=== PATIENT | male | born 1960 | race Caucasian/White ===

== ENCOUNTER 2022-01-13 09:15 | Inpatient (IN) | payer OTHER ==
[~2022-01-13] VITALS: Ht 193 cm; Wt 72.6 kg
[2022-01-13 09:26] VITALS: BP 193/106
[2022-01-13 09:47] LABS: ABSOLUTE NEUTROPHILS 6.7 thou/uL (1.4-8.2); BASOPHILS 1.4 % (0.0-2.0); EOSINOPHILS 1.6 % (0.0-3.0); HEMATOCRIT 47.7 % (42.0-52.0); HEMOGLOBIN 16.6 gm/dL (14.0-18.0); LYMPHOCYTES 12.1 % (24.0-44.0); MCH 30.8 pg (26.0-34.0); MCHC 34.9 g/dL (28.0-37.0); MCV 88.2 fL (80.0-100.0); MONOCYTES 4.4 % (1.0-8.0); PLATELET COUNT 209 thou/uL (150-400); POLYS 80.5 % (36.0-66.0); RBC 5.41 mil/uL (4.50-6.00); RDW 13.5 % (10.5-14.5); WBC 8.3 thou/uL (4.0-11.0)
[2022-01-13 09:54] LABS: CALCIUM 10.2 mg/dL (8.5-10.1); CREATININE 0.9 mg/dL (0.7-1.3); POTASSIUM 4.2 mmol/L (3.5-5.1)
[2022-01-13 09:59] LABS: APTT 26.3 Seconds (24.5-32.8); INR 0.97; PROTIME 10.6 Seconds (10.5-12.1)
[2022-01-13 10:04] LABS: ALBUMIN 3.9 g/dL (3.4-5.0); MAGNESIUM 2.3 mg/dL (1.8-2.4); TOTAL BILIRUBIN 0.9 mg/dL (0.2-1.0); TOTAL PROTEIN 7.5 g/dL (6.4-8.2)
--- NOTE | 2022-01-13 11:29 | EKG ---
[address] [address] ELECTROCARDIOGRAM REPORT Name: SHARON BRAVO [id number] Admission: 01/13/22 Attend Phys: Discharge: Date of : 56 Report #: [id number] [facility] ED Test Date: 2022-01-13 Test Time: 09:37:52 Pat Name: SHARON BRAVO Department: Room: Gender: M [place] Folder: COOKIE : 1960 Requested By: Parish Padilla Order Number: [id number] MD: Ethan Isbell Measurements Intervals Willis Rate: 106 P: 80 FL: 162 QRS: 84 QRSD: 99 T: 34 QT: 340 QTc: 452 Interpretive Statements Sinus tachycardia Borderline right axis deviation No previous ECG available for comparison Electronically Signed On 01-13-2022 11:29:12 [employer]IVATE SECTOR EXECUTIVE by Ethan Isbell [email or web address] <ELECTRONICALLY SIGNED> By: Ethan Isbell MD, [facility] 01/13/22 1129 [id number] Ethan Isbell MD, FACC /EPI
[2022-01-13 11:43] LABS: URINE BILIRUBIN NEGATIVE (Negative); URINE BLOOD NEGATIVE (Negative); URINE CLARITY CLEAR; URINE COLOR YELLOW; URINE GLUCOSE-RANDOM* 3+ (Negative); URINE KETONES NEGATIVE (Negative); URINE LEUKOCYTES-REFLEX NEGATIVE (Negative); URINE NITRITE-REFLEX NEGATIVE (Negative); URINE PROTEIN (DIPSTICK) NEGATIVE (Negative)
[2022-01-13 11:58] LABS: AMP/METHAMP Negative (Negative); BARBITURATES Negative (Negative); BENZODIAZEPINES Negative (Negative); COCAINE Negative (Negative); METHADONE Negative (Negative); OPIATES Negative (Negative); PCP Negative (Negative)
[2022-01-13 13:21] VITALS: BP 214/91
[2022-01-13 13:50] VITALS: BP 187/89
[2022-01-13 15:40] VITALS: BP 179/85
[2022-01-13 19:30] VITALS: BP 150/95
[2022-01-14 03:30] VITALS: BP 163/85
[2022-01-14 06:03] LABS: CHOLESTEROL 137 mg/dL (<200); HDL CHOLESTEROL 30 mg/dL (>40); LDL CHOLESTEROL 88 mg/dL (<100); TC:HDL 4.6 Ratio (Not establshd); TRIGLYCERIDE 98 mg/dL (<150); VLDL 20 mg/dL (<40)
[2022-01-14 06:08] LABS: SERUM ASSESSMENT Clear
[2022-01-14 07:07] LABS: GLYCOHEMOGLOBIN (HGB A1C) 9.2 % (4.8-5.6)
[2022-01-14 09:00] VITALS: BP 162/80
[2022-01-14 12:27] VITALS: BP 177/80
[2022-01-14 16:06] VITALS: BP 158/72
--- NOTE | 2022-01-14 18:27 | NUR ---
ASSUMED PT CARE THIS MORNING. PT A&OX4 AND COMMUNICATING NEEDS TO STAFF APPROPRIATLEY. PT DID NOT SCORE ON AN NIH TEST THIS MORNING OR AFTERNOON. PT AMBULATES TO THE BATHROOM INDEPENDENTLY AND VOIDS WITHOUT ANY ISSUE. PT HAD A GOOD APPETITE AND CONSUMED 100% OF MEALS AND SNACKS. PT DID NOT HAVE ANY PAIN THIS SHIFT.
[2022-01-14 19:51] VITALS: BP 170/87
[2022-01-15 04:04] VITALS: BP 152/88
--- NOTE | 2022-01-15 07:30 | NUR ---
ALERT AND ORIENTEDX4, SR ON TELE, DENIES PAIN, NIH SCALE 0, ASSESSMENTS CHARTED, MEDS GIVEN PER MAR, NO EVENTS THIS SHIFT, PLAN FOR ECHO AND MRI TODAY, PASSED ON REPORT TO DAY RN
[2022-01-15 07:50] VITALS: BP 156/81
[2022-01-15 11:22] LABS: HEMATOCRIT 42.8 % (42.0-52.0); MCH 30.2 pg (26.0-34.0); MCHC 34.1 g/dL (28.0-37.0); MCV 88.5 fL (80.0-100.0); RBC 4.84 mil/uL (4.50-6.00); RDW 13.3 % (10.5-14.5); WBC 5.7 thou/uL (4.0-11.0)
[2022-01-15 11:26] LABS: HEMOGLOBIN 14.6 gm/dL (14.0-18.0)
[2022-01-15 11:38] LABS: CALCIUM 9.8 mg/dL (8.5-10.1); CREATININE 0.9 mg/dL (0.7-1.3); MAGNESIUM 2.2 mg/dL (1.8-2.4); POTASSIUM 4.4 mmol/L (3.5-5.1)
[2022-01-15 11:50] VITALS: BP 169/69
--- NOTE | 2022-01-15 12:59 | NUR ---
PATIENT ADMITTED FOR CVA, R ICA OCCLUSION. CHART REVIEWED AND DISCUSSED WITH CARE TEAM. CM MET WITH PT THIS DAY. CM ROLE INTRODUCED. PT REPORTS HE LIVES AT HOME ALONG IN HIS [place]. HE DENIES USE OF AN [employer] DEVICE AND INDEP WITH ADLS AND MOBILITY. HE REPORTS HE IS STILL WORKING. RECENTLY CHANGED HIS INSURANCE WITH HIS NEW EMPLOYER. PT REPORTS HIS GOAL IS TO RETURN HOME ONCE MEDICALLY STABLE. CM RECEIVED CONSULT TO ASSIST WITH MED COPAYS ON DISCHARGE. PT INDICATED HE MAY IN FACT NEED ASSIST WITH MED COPAYS ON DISCHARGE. PT REPORTS HIS PCP IS AUDREY BRAVO. HOOD PHONE NUMBER IS [phone]. PT REPORT HIS PCP IS DR LIMON. THERAPY RECOMMENDING PT OK TO DC HOME WITH NO NEEDS. CM WILL FOLLOW FOR DC MED COPAYS. CM FOLLOWING.
[2022-01-15 16:01] VITALS: BP 190/91
--- NOTE | 2022-01-15 18:29 | NUR ---
ASSUMED PT CARE THIS MORNING. PT A&OX4 AND COMMUNICATING NEEDS TO STAFF APPROPRIATELY. PT AMBULATES IN THE ROOM AND HALLS INDEPENDENLTY. PT VOIDED IN THE BATHROOM WITHOUT ANY ISSUES. PT WAS EDUCATED ABOUT THE IMPORTANCE OF MEDICATION COMPLIANCE AND SOCIAL WORK WAS CONSULTED FOR FINANCIAL SITUATION. PT HAD A GOOD APPETITE AND CONSUMED 100% OF MEALS AND SNACK. MRI COMPLETE TODAY STILL WAITING ON ECHO.
[2022-01-15 20:15] VITALS: BP 183/95
[2022-01-16 00:45] VITALS: BP 159/102
[2022-01-16 04:07] LABS: HEMATOCRIT 42.4 % (42.0-52.0); HEMOGLOBIN 14.5 gm/dL (14.0-18.0); MCH 30.2 pg (26.0-34.0); MCHC 34.1 g/dL (28.0-37.0); MCV 88.5 fL (80.0-100.0); RBC 4.79 mil/uL (4.50-6.00); RDW 13.1 % (10.5-14.5); WBC 6.3 thou/uL (4.0-11.0)
[2022-01-16 04:39] LABS: CALCIUM 9.1 mg/dL (8.5-10.1); CREATININE 0.8 mg/dL (0.7-1.3); MAGNESIUM 2.1 mg/dL (1.8-2.4); POTASSIUM 4.3 mmol/L (3.5-5.1)
[2022-01-16 04:45] VITALS: BP 152/70
[2022-01-16 08:00] VITALS: BP 152/86
--- NOTE | 2022-01-16 10:52 | 2DMMODE ---
[facility] [place] [address] 2 D/M-MODE ECHOCARDIOGRAM Name: SHARON BRAVO Room #: 208-P ADM IN M.R.#: [id number] Admission: 01/13/22 Attend Phys: Xander Roe MD Discharge: Date of : 56 Report #: [id number] THIS REPORT FOR: cc: Parish Padilla MD NO FAMILY PHYSICIAN or PCP Emanuel Deal MD ~ APPROVED REPORT Study performed: 01/16/2022 09:11:56 EXAM: Comprehensive 2D, Doppler, and color-flow Echocardiogram Patient Location: Bedside Room #: 208 Status: routine BSA: 2.00 HR: 73 bpm BP: 152/70 mmHg Rhythm: NSR Other Information Study Quality: Good Indications CVA/TIA Hypertension/HDD Echo Enhancing Agent Indication: Rule out Shunt Agent(s) / Amount(s) Used: Agitated Saline 7 cc 2D Dimensions IVC: 14.00 mm Aortic Valve AoV Peak Tariq.: 0.92 m/s AO Peak Gr.: 3.37 mmHg LVOT Max P.79 mmHg LVOT Max V: 0.84 m/s Mitral Valve E/A Ratio: 0.7 MV Decel. Time: 201.57 ms MV E Max Tariq.: 0.51 m/s MV A Tariq.: 0.71 m/s MV PHT: 58.45 ms [facility] [address] [place] [place] [address] 2 D/M-MODE ECHOCARDIOGRAM Name: SHARON BRAVO Room #: 208-P ADM IN M.R.#: [id number] Admission: 01/13/22 Attend Phys: Xander Roe, Discharge: Date of : 56 Report #: [id number] IVRT: 124.57 ms Pulmonary Valve PV Peak Tariq.: 0.74 m/s PV Peak Gr.: 2.17 mmHg Pulmonary Vein P Vein S: 0.36 m/s P Vein A: 0.23 m/s P Vein D: 0.24 m/s P Vein A Dur.: 106.1 msec P Vein S/D Ratio: 1.50 Left Ventricle The left ventricle is normal size. There is normal LV segmental wall motion. There is normal left ventricular wall thickness. Left ventricular systolic function is normal. The left ventricular ejection fraction is within the normal range. LVEF is 60-65%. Grade I - abnormal relaxation pattern. Right Ventricle The right ventricle is normal size. The right ventricular systolic function is normal. Atria The left atrium size is normal. Injection of bubbles documented no interatrial shunt. The right atrium size is normal. Aortic Valve The aortic valve is normal in structure. No aortic regurgitation is present. There is no aortic valvular stenosis. Mitral Valve The mitral valve is normal in structure. There is no mitral valve regurgitation noted. No evidence of mitral valve stenosis. Tricuspid Valve The tricuspid valve is normal in structure. There is no tricuspid valve regurgitation noted. Pulmonic Valve The pulmonary valve is normal in structure. There is no pulmonic valvular regurgitation. Great Vessels The aortic root is normal in size. IVC is normal in size and collapses >50% with inspiration. Pericardium [facility] [address] [place] [address] 2 D/M-MODE ECHOCARDIOGRAM Name: SHARON BRAVO Room #: 208-P [facility].#: [id number] Admission: 01/13/22 Attend Phys: Xander Roe, Discharge: Date of : 56 Report #: [id number] There is no pericardial effusion. <Conclusion> The left ventricle is normal size. There is normal left ventricular wall thickness. Left ventricular systolic function is normal. The right ventricle is normal size. The left atrium size is normal. The aortic valve is normal in structure. There is no mitral valve regurgitation noted. Injection of bubbles documented no interatrial shunt. <ELECTRONICALLY SIGNED> By: Emanuel Deal MD 01/16/221051 51 51 Emanuel Deal MD /INF
[2022-01-16 11:17] VITALS: BP 152/86
[2022-01-16 12:00] VITALS: BP 155/85
[2022-01-16] MEDS ORDERED: ADULT LOW DOSE81 MG PO (12:16)
[2022-01-16] MEDS ORDERED: LIPITOR40 MG PO (12:16)
[2022-01-16] MEDS ORDERED: LISINOPRIL2.5 MG PO (12:16)
[2022-01-16] MEDS ORDERED: CLOPIDOGREL75 MG PO (12:16)
[2022-01-16] MEDS ORDERED: FREESTYLE LANC1 EACH MISCELL (12:20)
[2022-01-16] MEDS ORDERED: FREESTYLE TEST1 EACH SUBQ (12:20)
[2022-01-16] MEDS ORDERED: FREESTYLE SYST1 EACH SUBQ (12:20)
[2022-01-16] MEDS ORDERED: METFORMIN HCL500 M3 PO (12:20)
--- NOTE | 2022-01-16 16:39 | NUR ---
CM VOUCHED MEDS THIS DAY PRIOR TO DC HOME. COST $35.11. THIS DOES NOT INCLUDE SUPPLIES NEEDED TO CHECK BLOOD SUGAR. PHARM INFORMED CM THIS WILL NOT BE READY UNTIL TOMORROW. PHARM WILL CALL PT WHEN READY TO ORGANIC LAB WORKER. CM DISCUSSED WITH PT. PT IS AGREEABLE TO ORGANIC LAB WORKER INSULING SUPPLIES TOMORROW AND AWARE CM WILL VOUCH FOR. COST FOR SUPPLIES ESIMATED AT $95. CM DELIVERED MEDS THIS EVENING TO PTS ROOM PRIOR TO DC HOME. NO FURTHER CM INTERVENTIONS INDICATED AT THIS TIME.
[2022-01-16 17:08] VITALS: BP 152/86
--- NOTE | 2022-01-16 17:26 | NUR ---
DISCHARGED PATIENT. EXPLAINED AND HIGHLIGHTED NEW AND CHANGED MEDICATIONS, AND UPCOMING APPOINTMENTS. PATIENT STATED HE UNDERSTOOD. REMOVED IV WITH TIP INTACT. REMOVED ROTARY SURFACE GRINDER. EXPLAINED TO PATIENT THAT HIS ADDITIONAL DIABETIC SUPPLIES WILL BE AVAILABLE TOMORROW AT THE [facility]OSPITAL [facility]. PATIENT STATED HE UNDERSTOOD.
== END 2022-01-16 17:44 | disposition home or self-care (01) | DRG 66 ==
LOC: ER 09:15 → EROBS 11:41 → 2N 11:41
PROVIDERS: Emergency Medicine; ADMIT Internal Medicine; ATTEND Internal Medicine
DX: I63.9 Cerebral infarction, unspecified (principal); E11.51 Type 2 diabetes mellitus with diabetic peripheral angiopathy without gangrene; I10 Essential (primary) hypertension; Z20.822 Contact with and (suspected) exposure to COVID-19; Z79.899 Other long term (current) drug therapy; F17.210 Nicotine dependence, cigarettes, uncomplicated
CPT/HCPCS: 10081